=== PATIENT | female | born 1980 | race Caucasian/White ===

== ENCOUNTER 2017-01-05 15:29 | Emergency (ER) | payer MEDICAID | END 2017-01-05 18:56 | disposition home or self-care (01) | LOC: D.ER 15:29 | DX: L02.31 Cutaneous abscess of buttock (principal); L03.317 Cellulitis of buttock; F31.9 Bipolar disorder, unspecified; F41.1 Generalized anxiety disorder; G47.00 Insomnia, unspecified ==